=== PATIENT | female | born 1955 | race African-American/Black ===

== ENCOUNTER 2021-03-04 10:32 | Emergency (ER) | payer MEDICAID, OTHER ==
[~2021-03-04] VITALS: Ht 162.6 cm; Wt 85.0 kg
[2021-03-04] MEDS ORDERED: IBUPROFEN 800MG TABLET PO ONE (10:45)
[2021-03-04] MEDS ORDERED: LEVO750T46 MT (13:36)
[2021-03-04 13:58] VITALS: BP 112/84
== END 2021-03-04 15:00 | disposition home or self-care (01) ==
LOC: ER 10:32
DX: U07.1 COVID-19 (principal); J12.82 Pneumonia due to coronavirus disease 2019; Z71.89 Other specified counseling
CPT/HCPCS: 71045; 99284; C9803; U0003; U0005

== ENCOUNTER 2022-02-12 11:17 | Emergency (ER) | payer MEDICARE, MEDICAID ==
[~2022-02-12] VITALS: Ht 162.6 cm; Wt 84.0 kg
[~2022-02-12 11:17] MED LIST: ALBU6.7H3 ORI; ASPI-1497 PO; BENA40TA91 PO; CHLO25TA2 PO; INSHUMSS SUBCUT; LANC1KIT37 MC; LEVO750T68 MT; MED4 MT; [UNRECOGNIZED DRUG - CODE] MC
[2022-02-12 11:34] VITALS: BP 191/94
== END 2022-02-12 17:58 | disposition left against medical advice (07) ==
LOC: ER 11:28
DX: Z53.21 Procedure and treatment not carried out due to patient leaving prior to being seen by health care provider (principal)
CPT/HCPCS: 93005